=== PATIENT | male | born 1990 | race American Indian/Alaskan Native ===

== ENCOUNTER 2016-09-04 17:33 | Emergency (ER) | payer OTHER ==
[2016-09-04] MEDS ORDERED: Silver Nitrate Topical - Stick ONE (17:57)
[2016-09-04] MEDS ORDERED: Silver Nitrate Topical - Stick TOP ONE (18:06)
--- NOTE | 2016-09-04 18:17 | C.PDOC ---
History Of Present Illness Patient is a 25 y/o male that presents to the emergency department for evaluation of sudden onset of nose bleed at 11:00am this morning. Pt states that he bled briskly for 30 minutes. Pt states he had another episode of nose bleed after trying to clean off, and blow his nose 30mins [employer]. Otherwise, denies any nose bleed at this time, lightheadedness, dizziness, headache, visual changes, difficulty breathing, or any other associated symptoms at this time. He had no recent trauma. Time Seen by Provider: 09/04/16 17:46 Chief Complaint (Nursing): ENT Problem History Per: Patient History/Exam Limitations: no limitations Onset/Duration Of Symptoms: Hrs Current Symptoms Are (Timing): Still Present Symptoms Have Been: Episodic Associated Symptoms: denies: Syncope, Lightheadedness, Bleeding From Gums, Nasal Congestion, Nasal Drainage Anticoagulant/Antiplatlet Use?: No Recent travel outside of the [place]: No Additional History Per: Patient Past Medical History Reviewed: Historical Data, Nursing Documentation, Vital Signs Vital Signs: Last Vital Signs Temp 98 F 09/04/16 17:39 Pulse 122 H 09/04/16 17:39 Resp 18 09/04/16 17:39 BP 154/99 H 09/04/16 17:55 Pulse Ox 99 09/04/16 19:38 - Medical History PMH: Denies: Chronic Kidney Disease Family History: States: No Known Family Hx - Social History Hx Alcohol Use: No Hx Substance Use: No Review Of Systems Except As Marked, All Systems Reviewed And Found Negative. Constitutional: Negative for: Fever, Chills Eyes: Negative for: Vision Change ENT: Positive for: Nose Discharge (epistaxis). Negative for: Nose Pain, Nose Congestion Cardiovascular: Negative for: Light Headedness Respiratory: Negative for: Shortness of Breath Neurological: Negative for: Headache, Dizziness Physical Exam - Physical Exam Appears: Non-toxic, No Acute Distress Skin: Normal Color, Warm, Dry Head: Atraumatic, Normacephalic Eye(s): bilateral: Normal Inspection, EOMI Nose: No Discharge, No Epistaxis, No Deformity, No Tenderness, Other (dry blood in left nostril) Neck: Normal ROM, Supple Chest: Symmetrical Cardiovascular: Rhythm Regular Respiratory: Normal Breath Sounds, No Rales, No Rhonchi, No Wheezing Extremity: Normal ROM Neurological/Psych: Oriented x3, Normal Speech, Normal Cognition ED Course And Treatment - Laboratory Results Result Diagrams: 09/04/16 18:17 09/04/16 18:17 Lab Interpretation: Normal O2 Sat by Pulse Oximetry: 99 (on RA) Pulse Ox Interpretation: Normal Progress Note: Blood work ordered and reviewed. blood pressure continued to be elevated with and increase to 148/123 at one point. He was medicated with clonidine 0.2 mg. BP declined to 138/80 but he developed sudden onset of bleeding for the left nostril. No obvious vessel was seen on the septum and bleeding seemed to be coming from the floor or the nostril. Clots were cleared from the nostril by patient blowing and a rapid rhino 5.5 cm was inserted into the nostril. Reevaluation Time: 20:39 Reassessment Condition: Improved (Patient states that the packing became saturated with blood and he removed it. he has no active bleeding at this time. There is a small ? clotted vessel on the anterior septum that was cauterized with silver nitrate. No evidence of bleeding noted.) Disposition Counseled Patient/Family Regarding: Studies Performed, Diagnosis, Need For Followup - Disposition Referrals: Edmundo Rodriguez MD [Staff Provider] - Disposition: HOME/ ROUTINE Disposition Time: 20:42 Condition: IMPROVED Additional Instructions: Do not put anything in the nostril. Try not to blow your nose. No hot liquids and no alcohol. Try not to bend over. Return to the ED if bleeding recurs. Take Robitussin DM twice a day for your cough. follow up with Dr Cardona on Tuesday for a blood pressure check. Instructions: Nosebleed (ED) - Clinical Impression Clinical Impression: Epistaxis not due to trauma - Scribe Statement The provider has reviewed the documentation as recorded by the Rosy Delgado Provider Attestation: All medical record entries made by the Osmelibsabrina were at my direction and personally dictated by me. I have reviewed the chart and agree that the record accurately reflects my personal performance of the history, physical exam, medical decision making, and the department course for this patient. I have also personally directed, reviewed, and agree with the discharge instructions and disposition.
[2016-09-04 18:29] LABS: CHLORIDE 99 mmol/L (98-107); POTASSIUM 4.4 mmol/L (3.6-5.2); SODIUM 138 mmol/L (132-148)
[2016-09-04 18:30] LABS: BASO # 0.1 K/uL (0.0-0.2); BASO % 0.8 % (0.0-2.0); EOS # 0.1 K/uL (0.0-0.7); EOS % 1.2 % (0.0-4.0); HEMATOCRIT 48.1 % (35.0-51.0); LYMPH # 1.9 K/uL (1.0-4.3); LYMPH % 18.5 % (20.0-40.0); MEAN CELL VOLUME 79.1 fL (80.0-94.0); MEAN CORPUSCULAR HEMOGLOBIN 25.3 pg (27.0-31.0); MEAN PLATELET VOLUME 7.7 fL (7.2-11.7); MONO # 1.3 K/uL (0.0-0.8); MONO % 12.5 % (0.0-10.0); NRBC % 0.1 % (0.0-2.0); RED CELL DISTRIBUTION WIDTH 14.3 % (11.5-14.5); WHITE BLOOD COUNT 10.3 K/uL (4.8-10.8)
[2016-09-04 18:32] LABS: ALB/GLOB RATIO 1.2 (1.0-2.1); ALKALINE PHOSPHATASE 57 U/L (38-126); ALT/SGPT 41 U/L (21-72); AST/SGOT 48 U/L (17-59); BILIRUBIN,TOTAL 0.8 mg/dL (0.2-1.3); BLOOD UREA NITROGEN 7 mg/dL (9-20); CALCIUM 8.9 mg/dl (8.6-10.4); CARBON DIOXIDE 27 mmol/L (22-30); GFR AFRICAN-AMERICAN > 60; GLUCOSE,RANDOM 109 mg/dL (75-110); TOTAL PROTEIN 8.4 g/dL (6.3-8.3)
[2016-09-04 18:38] LABS: INR 1.1
[2016-09-04 20:53] VITALS: BP 136/91; PULSE 101; RESP 20; TEMP 98.7; O2SAT 98
== END 2016-09-04 20:53 | disposition home or self-care (01) ==
LOC: C.ER 17:33
DX: R04.0 Epistaxis (principal); I10 Essential (primary) hypertension